=== PATIENT | male | born 1950 | race American Indian/Alaskan Native ===

== ENCOUNTER 2020-06-21 19:20 | Emergency (ER) | payer SELFPAY ==
--- NOTE | 2020-06-21 20:17 | Event Note ---
ED Screening Note Date of service: 06/21/20 Time: 20:16 ED Screening Note: Laceration via lumbar to left middle finger Shave laceration-does not appear to need sutures however will rule out fracture foreign body with x-ray Patient states tetanus vaccination is up-to-date This initial assessment/diagnostic orders/clinical plan/treatment(s) is/are subject to change based on patients health status, clinical progression and re- assessment by fellow clinical providers in the ED. Further treatment and workup at subsequent clinical providers discretion. Patient/guardian urged not to elope from the ED as their condition may be serious if not clinically assessed and managed. Initial orders include: X-ray
[2020-06-21 20:27] VITALS: BP 175/95
--- NOTE | 2020-06-21 20:51 | Emergency Department Report ---
ED General Adult HPI - General Chief complaint: Wound/Laceration Stated complaint: LEFT FINGER INJURY Time Seen by Provider: 06/21/20 20:15 Source: patient Mode of arrival: Ambulatory Limitations: Language Barrier - History of Present Illness Initial comments: 69-year-old male patient presents with complaints of left middle finger laceration today. Patient states he cut his hand on the blades of the lawnmower. He reports his last tetanus vaccine was within the last 5 years. He denies any loss of sensation or difficulty moving his finger. Patient rates his pain as a 7/10 in severity. -: Sudden - Related Data Previous Rx's Medication Instructions Recorded Last Taken Type Ibuprofen [Motrin 800 MG tab] 800 mg PO Q8HR PRN #20 tablet 06/21/20 Unknown Rx Mupirocin [Bactroban 2% OINT] 1 applic TP TID 10 Days #1 tube 06/21/20 Unknown Rx cephALEXin [Keflex] 500 mg PO Q12HR 7 Days #14 cap 06/21/20 Unknown Rx ED Review of Systems ROS: Stated complaint: LEFT FINGER INJURY Other details as noted in HPI Musculoskeletal: denies: arthralgia Skin: as per HPI. denies: change in color ED Past Medical Hx - Past Medical History Previous Medical History?: Yes Hx Diabetes: Yes - Surgical History Past Surgical History?: No - Social History Smoking Status: Never Smoker Substance Use Type: None - Medications Home Medications: Home Medications Medication Instructions Recorded Confirmed Last Taken Type Ibuprofen [Motrin 800 MG tab] 800 mg PO Q8HR PRN #20 tablet 06/21/20 Unknown Rx Mupirocin [Bactroban 2% OINT] 1 applic TP TID 10 Days #1 tube 06/21/20 Unknown Rx cephALEXin [Keflex] 500 mg PO Q12HR 7 Days #14 cap 06/21/20 Unknown Rx ED Physical Exam - General Limitations: Language Barrier General appearance: alert, in no apparent distress, obese - Head Head exam: Present: atraumatic, normocephalic - Eye Eye exam: Present: normal appearance - Respiratory Respiratory exam: Absent: respiratory distress - Cardiovascular Cardiovascular Exam: Present: regular rate - Neurological Exam Neurological exam: Present: alert, oriented X3, normal gait - Psychiatric Psychiatric exam: Present: normal affect, normal mood - Skin Skin exam: Present: warm, dry, normal color. Absent: intact (Shave laceration noted to the tip of the left middle finger with mild active bleeding; no obvious foreign bodies are noted; patient has normal sensation and range of motion of the finger), rash ED Course Vital Signs 06/21/20 20:09 Temperature 99.3 F Pulse Rate 77 Respiratory 18 Rate Blood Pressure 175/95 O2 Sat by Pulse 93 Oximetry - Procedure Description Procedures done: Wound soaked in Betadine for 15 minutes and thoroughly irrigated with saline water. Bacitracin and nonadhesive sterile dressing placed on wound. ED Medical Decision Making - Medical Decision Making 69-year-old male patient presents with complaints of left middle finger laceration today. Patient states he cut his hand on the blades of the lawnmower. He reports his last tetanus vaccine was within the last 5 years. He denies any loss of sensation or difficulty moving his finger. Patient rates his pain as a 7/10 in severity. X-rays negative for any bony abnormalities. Unable to place sutures due to sha ve laceration. Nonadhesive dressing placed on finger along with antibiotic ointment. Patient to discharge home with Keflex for infection prophylaxis. Discussed wound care in great detail and signs and symptoms that should prompt immediate return to the emergency department in detail with patient who verbalizes understanding. He is well-appearing and stable for discharge home. Critical care attestation.: If time is entered above; I have spent that time in minutes in the direct care of this critically ill patient, excluding procedure time. ED Disposition Clinical Impression: Finger laceration Qualifiers: Encounter type: initial encounter Finger: middle finger Damage to nail status: without damage Foreign body presence: without foreign body Laterality: left Qualified Code(s): S61.213A - Laceration without foreign body of left middle finger without damage to nail, initial encounter Disposition: - TO HOME OR SELFCARE Is pt being admited?: No Condition: Stable Instructions: Nonsutured Laceration Care, Hypertension, Adult Prescriptions: Mupirocin [Bactroban 2% OINT] 1 applic TP TID 10 Days #1 tube cephALEXin [Keflex] 500 mg PO Q12HR 7 Days #14 cap Ibuprofen [Motrin 800 MG tab] 800 mg PO Q8HR PRN #20 tablet PRN Reason: pain Referrals: PRIMARY CARE, [Primary Care Provider] - 3-5 Days [facility] [Provider Group] - 3-5 Days Forms: Work/School Release Form(ED) Print Language: ANGOLAN
--- NOTE | 2020-06-21 20:59 | XRay Report ---
Left hand 3 views INDICATION: Laceration FINDINGS: There is a soft tissue injury within the distal aspect of the middle finger. Small radiopaq ue this appears represent the middle. Overlying bandage slightly limits evaluation. No definite forei gn body. No acute fracture. Signer Name: Gopi Mccurdy MD Signed: 06/21/2020 8:54 PM Workstation Name: [id number]
[2020-06-21] MEDS ORDERED: NEOMY 3.5 MG/BACIT 400 UNITS/POLY B 5000 UNITS/GM OINT PACKET TP STA (21:00)
[2020-06-21] MEDS ORDERED: NEOMY 3.5 MG/BACIT 400 UNITS/POLY B 5000 UNITS/GM OINT PACKET TP ONE (23:27)
== END 2020-06-21 23:39 | disposition home or self-care (01) ==
LOC: ED 19:20
DX: S61.213A Laceration without foreign body of left middle finger without damage to nail, initial encounter (principal); E11.9 Type 2 diabetes mellitus without complications; Z79.899 Other long term (current) drug therapy; W45.8XXA Other foreign body or object entering through skin, initial encounter; Y93.89 Activity, other specified; Y92.89 Other specified places as the place of occurrence of the external cause; Y99.8 Other external cause status
CPT/HCPCS: 73140; 99283; A6250